=== PATIENT | female | born 1955 | race Caucasian/White ===

== ENCOUNTER 2017-06-11 12:36 | Emergency (ER) | payer BC ==
[~2017-06-11] VITALS: Ht 170.2 cm; Wt 115.4 kg
[2017-06-11] MEDS ORDERED: SODIUM CHLORIDE 0.9% 1000ML 1,000 ML IV SCH (12:38)
[2017-06-11 12:50] VITALS: Ht 170.2 cm; Wt 115.4 kg
[2017-06-11] MEDS ORDERED: NiCARDipine IV 25 MG in SODIUM CHLORIDE 0.9% 250ML 240 ML IV STA (12:53)
--- NOTE | 2017-06-11 12:55 | EMERGENCY ROOM VISIT NOTE ---
History Report prepared by Darnellibe: Renetta Ford Under the Supervision of: Dr. Jonnathan Yarbrough D.O. First contact with patient: 12:35 Chief Complaint: STROKE SYMPTOMS Stated Complaint: CVA SYMPTOMS History of Present Illness The patient is a 62 year old female who presents to the Emergency Room with complaints of possible stroke symptoms that started around 1130 this morning. She was brought to the ED via EMS from a doctors appointment at [facility]. EMS reports the patient had experienced weakness and chest pressure for the past 4 days, so she made an appointment to see Dr. Power today at [facility]. While at the office, she deteriorated and displayed left sided weakness, and a left sided facial droop while trying to get off the exam table, so EMS was called. The patient is awake and alert on arrival to the ED. She denies any recent trauma or injuries but complains of a slight headache. She takes no daily medications except for vitamins and does not take blood thinners. Source of History: patient, EMS Onset: ED MANAGER Position: other (global) Timing: constant Associated Symptoms: + headache, + weakness (left sided) Review of Systems See HPI for pertinent positives & negatives. A total of 10 systems reviewed and were otherwise negative. Past Medical & Surgical Medical Problems: (1) Left knee pain Social History Alcohol Use: occasionally Drug Use: none Marital Status: Housing Status: lives with family Occupation Status: retired Current/Historical Medications Scheduled Cholecalciferol (Vitamin D), 1 TAB PO DAILY Kfdkvlnhnwv-Yepubjhtglm-Wmvfby (Move Free Joint Health Ad), 1 TAB PO DAILY Allergies Coded Allergies: NO KNOWN DRUG ALLERGIES (Verified Allergy, Unknown, ., 06/11/17) Physical Exam Vital Signs Date Time Temp Pulse Resp B/P (MAP) Pulse Ox O2 Delivery O2 Flow Rate FiO2 06/11/17 14:28 145/95 06/11/17 14:04 99 26 119/94 94 Nasal Cannula 2.0 06/11/17 13:52 94 28 146/88 95 Nasal Cannula 3.0 06/11/17 13:46 94 26 148/90 95 Nasal Cannula 2.0 06/11/17 13:43 91 06/11/17 13:41 162 06/11/17 13:30 125 19 180/132 98 06/11/17 13:27 120 25 188/133 96 Nasal Cannula 3.0 06/11/17 13:20 113 24 159/124 97 Nasal Cannula 3.0 06/11/17 13:10 114 18 220/124 97 Nasal Cannula 3.0 06/11/17 13:06 111 26 208/147 97 Nasal Cannula 06/11/17 13:01 107 26 221/145 97 Nasal Cannula 06/11/17 12:56 97 Nasal Cannula 2.0 06/11/17 12:55 99 22 233/151 98 Nasal Cannula 3.0 06/11/17 12:50 94 22 239/163 95 Nasal Cannula 2.0 06/11/17 12:50 94 Physical Exam GENERAL: Patient is awake, alert and very anxious appearing. EYES: The conjunctivae are clear. The pupils are round and reactive. EARS, NOSE, MOUTH AND THROAT: The nose is without any evidence of any deformity. Mucous membranes are moist, tongue is midline NECK: The neck is nontender and supple. RESPIRATORY: Normal respiratory effort is noted there is no evidence of wheezing rhonchi or rales CARDIOVASCULAR: Regular rate and rhythm noted there no murmurs rubs or gallops normal S1 normal S2 GASTROINTESTINAL: The abdomen is soft. Bowel sounds are present in all quadrants. Abdomen is nontender MUSCULOSKELETAL/EXTREMITIES: There is no evidence of gross deformity full range of motion is noted in the hips and shoulders SKIN: There is no obvious evidence of any rash. There are no petechiae, pallor or cyanosis noted. NEUROLOGIC: Patient is awake alert and oriented x3, there was a left sided facial droop appreciated with forehead sparing, speech is clear, left sided weakness with leg greater than arm. Mixer Helper strength is diminished in the LUE compared to RUE. Medical Decision & Procedures ER Provider Diagnostic Interpretation: Radiology results as stated below per my review and radiologist interpretation: HEAD WITHOUT CONTRAST (CT) CT DOSE: 690.05 mGycm HISTORY: Mental status change Stroke TECHNIQUE: Multiaxial CT images of the head were performed without the use of intravenous contrast. A dose lowering technique was utilized adhering to the principles of ALARA. Comparison: None. Findings: The paranasal sinuses and mastoid air cells are clear. Calvarium and skull base are intact. There is an acute hemorrhage involving the right thalamus. This has a maximum dimension of 2.2 cm. There Is partial effacement of the right lateral ventricle with evidence for blood within the right lateral ventricle as well as third ventricle. There is slight midline shift to the left of 4 mm. There is a small cortical focus of diminished density superior right parietal lobe transaxial image 19 possibly subacute to old. Basal cisterns are intact. There is no evidence for effacement of the basilar aspects of the brain. Impression: 1. Acute right thalamic hemorrhage. 2. Intraventricular extension to the right lateral ventricle as well as third ventricle. 3. Mild midline shift to the left of 4 mm. 4. This report was dictated emergency room The above report was generated using voice recognition software. It may contain grammatical, syntax or spelling errors. Electronically signed by: Lamine Otto M.D. 06/11/2017 12:52 PM SINGLE VIEW CHEST CLINICAL HISTORY: Strokelike symptoms. FINDINGS: An AP, portable, upright chest radiograph is obtained. No prior studies are available for comparison at the time of dictation. The examination is degraded by portable technique and patient rotation. The heart is enlarged and there is atherosclerotic calcification of the thoracic and. There is mild pulmonary vascular congestion. There are low lung volumes with bibasilar atelectasis. No large pleural effusion or pneumothorax is seen. The skeletal structures are osteopenic. The bony thorax is grossly intact. IMPRESSION: Cardiomegaly with mild pulmonary vascular congestion. Electronically signed by: Donal Santoro M.D. 06/11/2017 1:09 PM Laboratory Results 06/11/17 12:50 Red Blood Count 4.60, Mean Corpuscular Volume 94.3, Mean Corpuscular Hemoglobin 33.0, Mean Corpuscular Hemoglobin Concent 35.0, Mean Platelet Volume 9.8, Neutrophils (%) (Auto) 60.7, Lymphocytes (%) (Auto) 30.1, Monocytes (%) (Auto) 7.1, Eosinophils (%) (Auto) 1.3, Basophils (%) (Auto) 0.6, Neutrophils # (Auto) 3.28, Lymphocytes # (Auto) 1.62, Monocytes # (Auto) 0.38, Eosinophils # (Auto) 0.07, Basophils # (Auto) 0.03 06/11/17 12:50 Test 06/11/17 12:38 06/11/17 12:50 White Blood Count 5.39 K/uL (4.8-10.8) Red Blood Count 4.60 M/uL (4.2-5.4) Hemoglobin 15.2 g/dL (12.0-16.0) Hematocrit 43.4 % (37-47) Mean Corpuscular Volume 94.3 fL (80-100) Mean Corpuscular Hemoglobin 33.0 pg (25-34) Mean Corpuscular Hemoglobin Concent 35.0 g/dl (32-36) Platelet Count 185 K/uL (130-400) Mean Platelet Volume 9.8 fL (7.4-10.4) Neutrophils (%) (Auto) 60.7 % Lymphocytes (%) (Auto) 30.1 % Monocytes (%) (Auto) 7.1 % Eosinophils (%) (Auto) 1.3 % Basophils (%) (Auto) 0.6 % Neutrophils # (Auto) 3.28 K/uL (1.4-6.5) Lymphocytes # (Auto) 1.62 K/uL (1.2-3.4) Monocytes # (Auto) 0.38 K/uL (0.11-0.59) Eosinophils # (Auto) 0.07 K/uL (0-0.5) Basophils # (Auto) 0.03 K/uL (0-0.2) RDW Standard Deviation 50.1 fL (36.4-46.3) RDW Coefficient of Variation 14.7 % (11.5-14.5) Immature Granulocyte % (Auto) 0.2 % Immature Granulocyte # (Auto) 0.01 K/uL (0.00-0.02) Prothrombin Time 10.2 SECONDS (9.0-12.0) Prothromb Time International Ratio 1.0 (0.9-1.1) Activated Partial Thromboplast Time 26.1 SECONDS (21.0-31.0) Partial Thromboplastin Ratio 1.0 Anion Gap 8.0 mmol/L (3-11) Est Creatinine Clear Calc Drug Dose 63.0 ml/min Estimated GFR () 55.7 Estimated GFR (Non- 48.1 BUN/Creatinine Ratio 9.8 (10-20) Calcium Level 9.3 mg/dl (8.5-10.1) Magnesium Level 2.2 mg/dl (1.8-2.4) Total Bilirubin 0.8 mg/dl (0.2-1) Direct Bilirubin 0.2 mg/dl (0-0.2) Aspartate Amino Transf (AST/SGOT) 33 U/L (15-37) Alanine Aminotransferase (ALT/SGPT) 46 U/L (12-78) Alkaline Phosphatase 101 U/L (45-117) Total Creatine Kinase 140 U/L (26-192) Creatine Kinase MB 1.6 ng/ml (0.5-3.6) Creatine Kinase MB Ratio 1.1 (0-3.0) Troponin I < 0.015 ng/ml (0-0.045) Total Protein 8.0 gm/dl (6.4-8.2) Albumin 4.1 gm/dl (3.4-5.0) Laboratory results per my review. Medications Administered Medications (Trade) Dose Ordered Sig/[place] Route Start Time Stop Time Status Last Admin Dose Admin Levetiracetam 2000 mg/Dextrose 270 ml @ 999 mls/hr ONE ONCE IV 06/11/17 13:00 06/11/17 13:16 DC 06/11/17 13:09 999 MLS/HR Nicardipine HCl 25 mg/Sodium Chloride 250 ml @ 0 mls/hr Q0M STAT IV 06/11/17 12:53 06/11/17 12:54 DC 06/11/17 12:59 50 MLS/HR Labetalol HCl (Normodyne IV) 10 mg NOW STAT IV 06/11/17 13:34 06/11/17 13:35 DC 06/11/17 13:44 10 MG Ondansetron HCl (Zofran Inj) 4 mg NOW STAT IV 06/11/17 13:39 06/11/17 13:41 DC 06/11/17 13:45 4 MG Morphine Sulfate (MoRPHine SULFATE INJ) 2 mg STK-MED ONCE .ROUTE 06/11/17 13:40 06/11/17 13:41 DC 06/11/17 13:44 2 MG ECG Per My Interpretation Indication: weakness Rate (beats per minute): 92 Rhythm: normal sinus Findings: no ectopy, other (Anterior and lateral T-wave abnormalities, LVH by voltage criteria) Comparison ECG Date: no prior available ED Course 1247: The patient was evaluated in room A1. A complete history and physical examination were performed. 1238: NSS 1000 ml @ 50 mls/hr IV. 1253: Nicardipine HCl 25 mg/NSS 250 ml @ 0 mls/hr IV. 1300: Nicardipine HCl 25 mg/NSS 250 ml @ 0 mls/hr IV, Levetiracetam 2000 mg/ Dextrose 270 ml @ 999 mls/hr IV. 1305: I discussed the patients with Dr. Rosales, [facility] ED. The patient has accepted the patient as a transfer to [facility]. She will be further evaluated. 1334: Labetalol 10 mg IV. 1339: Zofran 4 mg IV. 1339: I reevaluated the patient. She states her headache is worse and she has noted ectopy on the monitoring engineer. 1340: Morphine Sulfate 3 mg IV. 1345: Morphine Sulfate 2 mg IV. 1422: [facility] has arrived and is preparing the patient for flight. Medical Decision Prior records/ancillary studies reviewed and summarized above. Nursing notes reviewed. Differential diagnosis: Etiologies such as metabolic, infection, hypo/hyperglycemia, electrolyte abnormalities, cardiac sources, intracerebral event, toxicologic, neurologic, as well as others were entertained. The patient is a 62-year-old female who presented to the emergency department for an evaluation of generalized weakness. The patient started having symptoms since Thursday which she describes as generalized weakness and "just not feeling well". The patient had an EKG at her primary care physician's office. This was found to show T-wave inversions which were felt to be possibly due to ischemia given the patient's vague complaints. The patient's primary care physician called the charge nurse to give report that the patient would be coming to the emergency department by ambulance. When the patient was evaluated by the paramedics she was found to have left-sided weakness and left facial droop. This appears to have just started prior to the evaluation by the truck driving because the patient walked into the office on her own strength. I was called by the truck driving for possible stroke alert. The patient was made a stroke alert prior to arrival. The patient immediately had a CT the head which revealed signs of intraparenchymal bleeding. The patient also had some extension into the intraventricular and subarachnoid space. I discussed patient 's laboratory and radiographic studies with her. She did complain of headache. She was treated with IV antihypertensive medication as well as IV seizure prophylaxis medication. The patient was also discussed with the emergency department at [facility]. She was accepted in transfer for further evaluation. The patient's blood pressure continued to improve while she was in the emergency department. She required multiple IV antihypertensives. Transfer paperwork was filled out by myself. The patient was sent via medical helicopter. Medication Reconcilliation Current Medication List: was personally reviewed by me Blood Pressure Screening Patient's blood pressure: Elevated blood pressure Blood pressure disposition: Referred to PCP (The patients elevated blood pressure will be further managed at [facility]) Consults Time Called: 1300 Consulting Physician: Dr. Rosales, [facility] ED Returned Call: 1305 I discussed the patients with Dr. Rosales, [facility] ED. The patient has accepted the patient as a transfer to [facility]. She will be further evaluated. Impression Primary Impression: Subarachnoid hemorrhage Additional Impression: Hemorrhagic cerebrovascular accident (CVA) Critical Care I have personally spent greater than 90 minutes of critical care time in the direct management of this patient. This includes bedside care, interpretation of diagnostic studies, and testing, discussion with consultants, patient, and family members, and other required patient management activities. This 90 minutes is in excess of all separately billable procedures. Scribe Attestation The scribe's documentation has been prepared under my direction and personally reviewed by me in its entirety. I confirm that the note above accurately reflects all work, treatment, procedures, and medical decision making performed by me. Departure Information Dispostion Transfer Acute Care Facility (The patient has been accepted as a transfer to [facility] ) Patient Instructions My [facility] Problem Qualifiers
[2017-06-11 12:56] VITALS: O2SAT 97
[2017-06-11] MEDS ORDERED: LEVETIRACETAM IV 2,000 MG in DEXTROSE 5% 250ML 250 ML IV ONE (13:00)
[2017-06-11] MEDS ORDERED: NiCARDipine IV 25 MG in SODIUM CHLORIDE 0.9% 250ML 240 ML IV PRN (13:00)
--- NOTE | 2017-06-11 13:11 | DIAGNOSTIC IMAGING REPORT ---
SINGLE VIEW CHEST CLINICAL HISTORY: Strokelike symptoms. FINDINGS: An AP, portable, upright chest radiograph is obtained. No prior studies are available for comparison at the time of dictation. The examination is degraded by portable technique and patient rotation. The heart is enlarged and there is atherosclerotic calcification of the thoracic and. There is mild pulmonary vascular congestion. There are low lung volumes with bibasilar atelectasis. No large pleural effusion or pneumothorax is seen. The skeletal structures are osteopenic. The bony thorax is grossly intact. IMPRESSION: Cardiomegaly with mild pulmonary vascular congestion. Electronically signed by: Donal Santoro M.D. 06/11/2017 1:09 PM Dictated Date/Time: 06/11/2017 1:08 PM
[2017-06-11 13:12] LABS: MEAN PLATELET VOLUME 9.8 fL (7.4-10.4); PLATELET COUNT 185 K/uL (130-400)
[2017-06-11 13:21] LABS: PTT PATIENT 26.1 SECONDS (21.0-31.0)
[2017-06-11 13:33] LABS: HEMATOCRIT 43.4 % (37-47); HEMOGLOBIN 15.2 g/dL (12.0-16.0); MEAN CELL VOLUME 94.3 fL (80-100); RED CELL DISTRIBUTION WIDTH CV 14.7 % (11.5-14.5); RED CELL DISTRIBUTION WIDTH SD 50.1 fL (36.4-46.3); WHITE BLOOD COUNT 5.39 K/uL (4.8-10.8)
[2017-06-11 13:34] LABS: BASO % 0.6 %; BASO ABS # 0.03 K/uL (0-0.2); EOS % 1.3 %; EOS ABS # 0.07 K/uL (0-0.5); IG# 0.01 K/uL (0.00-0.02); LYMPH % 30.1 %; LYMPH ABS # 1.62 K/uL (1.2-3.4); MONO % 7.1 %; MONO ABS # 0.38 K/uL (0.11-0.59); NEUT % 60.7 %; NEUT ABS # 3.28 K/uL (1.4-6.5)
[2017-06-11] MEDS ORDERED: LABETALOL HCL IV 5 MG/ML 20ML IV STA (13:34)
[2017-06-11] MEDS ORDERED: LABETALOL HCL IV 5 MG/ML 20ML ONE (13:35)
[2017-06-11 13:39] LABS: ALBUMIN 4.1 gm/dl (3.4-5.0); ALT/SGPT 46 U/L (12-78); AST/SGOT 33 U/L (15-37); BLOOD UREA NITROGEN 12 mg/dl (7-18); CALCIUM 9.3 mg/dl (8.5-10.1); CARBON DIOXIDE 24 mmol/L (21-32); GLUCOSE 102 mg/dl (70-99); POTASSIUM 3.6 mmol/L (3.5-5.1); SODIUM 141 mmol/L (136-145)
[2017-06-11] MEDS ORDERED: ONDANSETRON INJ 2 MG/ML 2 ML VIAL IV STA (13:39)
[2017-06-11] MEDS ORDERED: MoRPHine SULFATE 2 MG/ML CARP ONE (13:40)
[2017-06-11] MEDS ORDERED: ONDANSETRON INJ 2 MG/ML 2 ML VIAL ONE (13:40)
[2017-06-11 13:44] LABS: ALKALINE PHOSPHATASE 101 U/L (45-117); CKMB 1.6 ng/ml (0.5-3.6)
[2017-06-11] MEDS ORDERED: MoRPHine SULFATE 4 MG/ML 1 ML CARP\\VIAL IV PRN (13:45)
[2017-06-11] MEDS ORDERED: CHOL200010 PO (13:59)
[2017-06-11] MEDS ORDERED: GLUC1TAB94 PO (13:59)
[2017-06-11 14:04] VITALS: PULSE 99; O2SAT 94
[2017-06-11 14:28] VITALS: BP 145/95
== END 2017-06-11 14:28 | disposition short-term general hospital (02) ==
LOC: EDBD 12:36 → C.EDA 12:40
DX: I60.9 Nontraumatic subarachnoid hemorrhage, unspecified (principal); R53.1 Weakness; R29.810 Facial weakness; Z79.899 Other long term (current) drug therapy